=== PATIENT | male | born 1980 | race African-American/Black ===

== ENCOUNTER 2018-04-23 22:46 | Emergency (ER) | payer OTHER | END 2018-04-23 23:24 | disposition home or self-care (01) | LOC: M ED 22:46 | DX: L25.9 Unspecified contact dermatitis, unspecified cause (principal); L50.9 Urticaria, unspecified; Z79.899 Other long term (current) drug therapy | CPT/HCPCS: 99282 ==

== ENCOUNTER 2018-07-01 20:27 | Emergency (ER) | payer OTHER ==
[~2018-07-01] VITALS: Ht 185.4 cm; Wt 106.4 kg
[~2018-07-01 20:27] MED LIST: AMLO5TAB4 PO; CETI10TA PO
[2018-07-01] MEDS ORDERED: TRAZ-160 PO (20:32)
[2018-07-01] MEDS ORDERED: KETOROLAC 30 MG/ML VIAL (J1885) IV ONE (21:15)
[2018-07-01 21:35] LABS: BASO # 0.1 10^3/uL (0.0-0.2); BASO % 1.9 % (0.0-1.0); EOS # 0.1 10^3/uL (0.0-0.50); EOS % 1.9 % (0.0-3.0); HEMATOCRIT 43.8 % (42.0-52.0); LYMPH # 1.4 10^3/uL (1.5-4.5); LYMPH % 37.3 % (24.0-44.0); MEAN CORPUSCULAR HEMOGLOBIN 26.7 pg (27.0-33.0); MEAN CORPUSCULAR VOLUME 83.4 fl (80.0-96.0); MONO # 0.3 10^3/uL (0.0-0.8); MONO % 9.1 % (0.0-5.0); NEUTROPHILS # 1.9 10^3/uL (1.8-7.7); NEUTROPHILS % 49.8 % (36.0-66.0); PLATELET COUNT, AUTOMATED 258 10^3/uL (150-450); RED BLOOD COUNT 5.25 10^6/uL (4.30-6.10); WHITE BLOOD COUNT 3.7 10^3/uL (4.0-10.0)
--- NOTE | 2018-07-01 21:42 | REP ---
Clinical: Acute chest pain . Comparison: None . Technique: PA and lateral. Findings: The mediastinum and cardiac silhouette are normal. The lung mi are clear and without acute consolidation, effusion, or pneumothorax. The skeletal structures are intact and normal. Impression: 1. No acute cardiopulmonary process. Electronically Signed by Larry Wilson MD 07/01/2018 09:33 P
[2018-07-01 22:14] LABS: BLOOD UREA NITROGEN 18 MG/DL (7-18); CALCIUM LEVEL 8.5 MG/DL (8.5-10.1); CARBON DIOXIDE LEVEL 30 MEQ/L (21-32); CHLORIDE LEVEL 101 MEQ/L (98-107); CK-MB VALUE MASS < 1.0 NG/ML (<3.6); CPK CREATINE PHOSPHOKINASE 131 U/L (39-308); CREATININE FOR GFR 1.31 MG/DL (0.70-1.30); GLOMERULAR FILTRATION RATE > 60.0 (>60); GLUCOSE, FASTING 102 MG/DL (70-100); MB/CK RELATIVE INDEX 0.76 (< OR =4); SODIUM LEVEL 138 MEQ/L (136-145); TROPONIN I < 0.02 NG/ML (< 0.10)
[2018-07-01 23:01] VITALS: BP 148/85
--- NOTE | 2018-07-02 20:39 | ECGEPIP ---
Stationary ECG Study [facility] - ED Test Date: 2018-07-01 Pat Name: ILANA PARK Department: Room: - Gender: M Minister Assistant: [place] : 1980 Requested By: PATRICIA Ryder Order Number: [id number] Reading MD: Magnolia Jose Measurements Intervals [place] Rate: 75 P: 42 GA: 192 QRS: -15 QRSD: 111 T: -26 QT: 366 QTc: 410 Interpretive Statements SINUS RHYTHM MODERATE INTRAVENTRICULAR CONDUCTION DELAY NONSPECIFIC ST & T-WAVE ABNORMALITY NO PRIOR FOR COMPARISON Electronically Signed On 07-02-2018 20:39:21 EST by Magnolia Jose
== END 2018-07-01 23:07 | disposition home or self-care (01) ==
LOC: M ED 20:27
DX: R07.89 Other chest pain (principal); I10 Essential (primary) hypertension; Z79.899 Other long term (current) drug therapy
CPT/HCPCS: 71046; 80048; 82550; 82553; 84484; 85025; 93005; 96374; 99284; J1885